=== PATIENT | male | born 1985 | race Caucasian/White ===

== ENCOUNTER 2016-10-21 12:34 | Emergency (ER) | payer MEDICAID ==
[~2016-10-21] VITALS: Ht 180.3 cm; Wt 108.9 kg
[2016-10-21 13:05] VITALS: BP 137/63; PULSE 65; RESP 15; TEMP 96.2; O2SAT 98
[2016-10-21 13:10] VITALS: BP 137/63; PULSE 65; RESP 15; TEMP 96.2; O2SAT 98
== END 2016-10-21 13:12 | disposition home or self-care (01) ==
LOC: SED 12:34
DX: J40 Bronchitis, not specified as acute or chronic (principal); R03.0 Elevated blood-pressure reading, without diagnosis of hypertension; K21.9 Gastro-esophageal reflux disease without esophagitis; F41.9 Anxiety disorder, unspecified; Z88.6 Allergy status to analgesic agent; Z88.5 Allergy status to narcotic agent
CPT/HCPCS: 99283

== ENCOUNTER 2016-12-27 15:02 | Emergency (ER) | payer MEDICAID ==
[~2016-12-27] VITALS: Ht 180.3 cm; Wt 104.3 kg
--- NOTE | 2016-12-27 15:05 | NUR ---
Patient to ER bed 6 to gown for evaluation. Side rails up. ASSUMED CARE.
--- NOTE | 2016-12-27 15:06 | NUR ---
KENNETH HOLGUIN NP AT BEDSIDE
[2016-12-27 15:07] VITALS: BP_SYST 141
--- NOTE | 2016-12-27 15:15 | NUR ---
PT AAOX4 C/O R SHOULDER PAIN S/P HORSEPLAY W/FRIEND AND FALL ONTO BED. NO HEAD OR NECK TRAUMA.NO SIGNIFICANT MED HX
[2016-12-27] MEDS ORDERED: KETOROLAC TROMETHAMINE 60 MG/2 ML VIAL IM ONE (15:30)
--- NOTE | 2016-12-27 15:30 | NUR ---
PT TO RAD DEPT.
--- NOTE | 2016-12-27 15:40 | NUR ---
Pt returned from rad dept
--- NOTE | 2016-12-27 15:44 | NUR ---
Pt toleratd medication well.
--- NOTE | 2016-12-27 16:00 | NUR ---
PT RECEIVED SLING TOLERATED WELL.
[2016-12-27 16:20] VITALS: BP_SYST 141
--- NOTE | 2016-12-27 16:20 | NUR ---
Patient given written and verbal discharge instructions and verbalizes understanding. ER MD discussed with patient the results and treatment provided. Given copies of tests performed in ER. Patient in stable condition. ID arm band removed. Rx of FLEXERIL,NAPROXEN given. Patient educated on pain management and to follow up with PMD. Pain Scale 2. Opportunity for questions provided and answered.
== END 2016-12-27 16:26 | disposition home or self-care (01) ==
LOC: SED 15:02
DX: S46.911A Strain of unspecified muscle, fascia and tendon at shoulder and upper arm level, right arm, initial encounter (principal); K21.9 Gastro-esophageal reflux disease without esophagitis; F41.9 Anxiety disorder, unspecified; F17.210 Nicotine dependence, cigarettes, uncomplicated; Z88.6 Allergy status to analgesic agent; W19.XXXA Unspecified fall, initial encounter; Y93.83 Activity, rough housing and horseplay; Y92.89 Other specified places as the place of occurrence of the external cause; Y99.8 Other external cause status
CPT/HCPCS: 73030; 96372; 99284; J1885

== ENCOUNTER 2017-10-09 09:40 | Emergency (ER) | payer MEDICAID ==
[~2017-10-09] VITALS: Ht 180.3 cm; Wt 108.9 kg
[2017-10-09 09:40] VITALS: BP_SYST 134
[2017-10-09 10:23] VITALS: BP_SYST 134
== END 2017-10-09 10:23 | disposition home or self-care (01) ==
LOC: SED 09:40
DX: J32.9 Chronic sinusitis, unspecified (principal); K21.9 Gastro-esophageal reflux disease without esophagitis; Z88.6 Allergy status to analgesic agent
CPT/HCPCS: 99283

== ENCOUNTER 2018-11-23 14:53 | Emergency (ER) | payer MEDICAID ==
[~2018-11-23] VITALS: Ht 180.3 cm; Wt 122.5 kg
[2018-11-23 14:57] VITALS: BP_SYST 152
[2018-11-23 15:33] VITALS: BP_SYST 148
== END 2018-11-23 15:33 | disposition home or self-care (01) ==
LOC: SED 14:53
DX: J40 Bronchitis, not specified as acute or chronic (principal); K21.9 Gastro-esophageal reflux disease without esophagitis; R03.0 Elevated blood-pressure reading, without diagnosis of hypertension; F41.9 Anxiety disorder, unspecified; Z71.6 Tobacco abuse counseling; Z88.5 Allergy status to narcotic agent
CPT/HCPCS: 99283